=== PATIENT | female | born 1930 | race Caucasian/White ===

== ENCOUNTER → 2017-11-19 | Outpatient (CLI) | payer MEDICARE ==
[~2017-11-19] MED LIST: AMLO-96 PO; ASP325 PO; ASPI-757 PO; CLAR-1 PO; CLIN300C99 PO; DILT180C81 PO; HYDR-2966 PO; HYDR-317 PO; HYDR12.556 PO; HYDR12.561 PO; LEVO-85 PO; LISI-362 PO; LISI5TAB25 PO; LOR5/325 PO; METF-410 PO; METO25TA23 PO; OXYGENHOME INH; PER PO; PROM5SYR PO; ROBC PO
== END ==
LOC: LAB 11:18
PROVIDERS: ATTEND Internal Medicine
DX: E11.9 Type 2 diabetes mellitus without complications (principal); E78.5 Hyperlipidemia, unspecified
CPT/HCPCS: 36415; 82040; 82247; 82310; 82374; 82435; 82465; 82565; 82947; 83036; 83718; 84075; 84132; 84155; 84295; 84450; 84460; 84478; 84520

== ENCOUNTER → 2018-03-16 | Outpatient (CLI) | payer MEDICARE ==
[~2018-03-16] MED LIST changes: +LOSA50TA72 PO; -METF-410 PO; +METF-411 PO
== END ==
LOC: LAB 11:47
PROVIDERS: ATTEND Internal Medicine
DX: E11.9 Type 2 diabetes mellitus without complications (principal); E78.5 Hyperlipidemia, unspecified
CPT/HCPCS: 36415; 82040; 82247; 82310; 82374; 82435; 82465; 82565; 82947; 83036; 83718; 84075; 84132; 84155; 84295; 84450; 84460; 84478; 84520

== ENCOUNTER → 2018-07-10 | Outpatient (CLI) | payer MEDICARE ==
[~2018-07-10] MED LIST changes: +AMLO-111 PO; -AMLO-96 PO; -LOSA50TA72 PO; +LOSA50TA74 PO; -METF-411 PO; +METF-450 PO
== END ==
LOC: LAB 10:37
PROVIDERS: ATTEND Internal Medicine
DX: E11.9 Type 2 diabetes mellitus without complications (principal); E78.5 Hyperlipidemia, unspecified; I10 Essential (primary) hypertension
CPT/HCPCS: 36415; 82040; 82247; 82310; 82374; 82435; 82465; 82565; 82947; 83036; 83718; 84075; 84132; 84155; 84295; 84450; 84460; 84478; 84520

== ENCOUNTER → 2018-10-27 | Outpatient (CLI) | payer MEDICARE ==
[~2018-10-27] MED LIST changes: -AMLO-111 PO; +AMLO-125 PO; -LOSA50TA74 PO; +LOSA50TA80 PO
== END ==
LOC: LAB 08:36
PROVIDERS: ATTEND Internal Medicine
DX: E11.9 Type 2 diabetes mellitus without complications (principal); I10 Essential (primary) hypertension; E78.5 Hyperlipidemia, unspecified
CPT/HCPCS: 36415; 82040; 82247; 82310; 82374; 82435; 82465; 82565; 82947; 83036; 83718; 84075; 84132; 84155; 84295; 84450; 84460; 84478; 84520